=== PATIENT | male | born 1955 | race Two or more races ===

== ENCOUNTER 2024-10-13 12:47 | Emergency (ER) | payer OTHER ==
[~2024-10-13] VITALS: Ht 175.3 cm; Wt 88.7 kg
[2024-10-13 13:42] VITALS: BP 120/75; PULSE 86; RESP 16; TEMP 98.1; O2SAT 94
--- NOTE | 2024-10-13 16:06 | DVH ---
CLINICAL INFORMATION: 69 years old, Male; pneumonia. TECHNIQUE: Frontal and lateral chest radiographs were obtained. COMPARISON: None FINDINGS: Lungs: Moderate elevation of the right hemidiaphragm. Mild atelectasis in the lung bases. No focal co nsolidation. Cardiac: Heart size is within normal limits. Pulmonary vasculature: Unremarkable Mediastinum/kvng: Moderate atherosclerotic calcification of the aortic arch. Bones: No evidence of acute osseous abnormality. Other: No other significant finding. IMPRESSION: 1. No evidence of acute disease in the chest. 2. Nonacute findings as described above.
[2024-10-13] MEDS ORDERED: BENZ100C97 PO (16:28)
--- NOTE | 2024-10-13 16:28 | ED.PDOC ---
History of Present Illness HPI Comments 69-year-old male with past medical history pertinent for HTN, presents to ED for flu-like symptoms x2 days, associated with cough, congestion, body aches, fatigue, intermittent fevers. Patient denies any nausea, vomiting, abdominal pain, shortness of breath, chest pain. He reports that his has similar s ymptoms at home. He reports taking DayQuil and NyQuil with some relief of symptoms. Chief Complaint: Flu like Time Seen by MD: 15:09 Primary Care Provider: MADELEINE Reviewed Notes: Nurses Notes, Medications, Allergies Allergies: Coded Allergies: NO KNOWN ALLERGIES (Unverified , 10/13/24) Home Meds Active Scripts Benzonatate (Benzonatate) 100 Mg Cap, 1 CAP PO TID, #30 CAP Prov:DEANGELOCLEO CONNOLLY PAC 10/13/24 Mode of Arrival: Ambulatory Past Medical History PAST MEDICAL HISTORY: HTN Family History Family History: Reviewed,noncontributory to illness, No family hx of Cancer, No family hx of DM, No family hx of Heart caity, No family hx of HTN, No family hx ofKidney caity, No family hx of Liver caity, No family hx of Lung caity, No family hx of Stroke Social History Smoker: Non-Smoker Alcohol: Denies ETOH Use Drugs: Denies Drug Use Constitutional: reports: fatigue, fever; denies: chills, diaphoresis, malaise, sweats, weakness, others EENTM: reports: nose congestion; denies: blurred vision, double vision, ear bleeding, ear discharge, ear drainage, ear pain, ear ringing, eye pain, eye redness, hearing loss, mouth pain, mouth swelling, nasal discharge, nose bleeding, nose pain, photophobia, tearing, throat pain, throat swelling, voice changes, others Respiratory: reports: cough; denies: hemoptysis, orthopnea, SOB at rest, shortness of breath, SOB with excertion, stridor, wheezing, others Cardiovascular: denies: chest pain, dizzy spells, diaphoresis, Dyspnea on exertion, edema, irregular heart beat, left arm pain, lightheadedness, palpitations, PND, syncope, others Gastrointestinal: denies: abdomen distended, abdominal pain, blood streaked bowels, constipated, diarrhea, dysphagia, difficulty swallowing, hematemesis, melena, nausea, poor appetite, poor fluid intake, rectal bleeding, rectal pain, vomiting, others Genitourinary: denies: burning, dysuria, flank pain, frequency, hematuria, incontinence, penile discharge, penile sore, pain, testicle pain, testicle swelling, urgency, others Neurological: denies: dizziness, fainting, headache, left sided numbness, left sided weakness, numbness, paresthesia, pre-existing deficit, right sided numbness, right sided weakness, seizure, speech problems, tingling, tremors, weakness, others Musculoskeletal: reports: muscle pain; denies: back pain, gout, joint pain, joint swelling, muscle stiffness, neck pain, others Integumetry: denies: bruises, change in color, change in hair/nails, dryness, laceration, lesions, lumps, rash, wounds, others Allergic/Immunocompromised: denies: Difficulty Healing, Frequent Infections, Hives, Itching, others Hematologic/Lymphatic: denies: anemia, blood clots, easy bleeding, easy bruising, swollen glands, others Endocrine: denies: excessive hunger, excessive sweating, excessive thirst, excessive urination, flushing, intolerance to cold, intolerance to heat, unexplained weight gain, unexplained weight loss, others Psychiatric: denies: anxiety, bipolar disorder, depression, hopeless, panic disorder, schizophrenia, sleepless, suicidal, others All Other Systems: Reviewed and Negative Physical Exam General Appearance: No Apparent Distress, Normal HEENT: Normal ENT Inspection, Pharynx Normal, TMs Normal Neck: Full Range of Motion, Non-Tender, Normal, Normal Inspection Respiratory: Chest Non-Tender, No Accessory Muscle Use, No Respiratory Distress, Wheezing (Mild expiratory wheezing heard in all lung valerio.) Cardiovascular: No Edema, No JVD, No Murmur, No Gallop, Normal Peripheral Pulses, Regular Rate/Rhythm Breast Exam: Deferred Gastrointestinal: No Organomegaly, Non Tender, No Pulsatile Mass, Normal Bowel Sounds, Soft Genitalia: Deferred Pelvic: Deferred Rectal: Deferred Extremities: No calf tenderness, Normal capillary refill, Normal inspection, Normal range of motion, Non-tender, No pedal edema Musculoskeletal : Apperance: Normal Neurologic: Alert, diving supervisor II-XII nml as Tested, No Motor Deficits, Normal Affect, Normal Mood, No Sensory Deficits Cerebellar Function: Normal Reflexes: Normal Skin: Dry, Normal Color, Warm Lymphatic: No Adenopathy Was a procedure done? Was a procedure done?: No Differential Dx Considerations may include: URI, pneumonia, sinusitis X-Ray, Labs, Meds, VS Vital Signs Date Time Temp Pulse Resp B/P (MAP) Pulse Ox O2 Delivery O2 Flow Rate FiO2 10/13/24 13:42 98.1 86 16 120/75 (90) 94 98.1 10/13/24 13:42 86 16 94 Room Air 10/13/24 12:51 98.1 86 16 120/75 (90) 94 Lab Test 10/13/24 15:17 Range/Units Influenza Type A Antigen Pending Influenza Type B Antigen Pending SARS-CoV-2 Antigen (Rapid) Pending X-Ray, Labs, Meds, VS Comment CXR: FINDINGS: Lungs: Moderate elevation of the right hemidiaphragm. Mild atelectasis in the lung bases. No focal consolidation. Cardiac: Heart size is within normal limits. Pulmonary vasculature: Unremarkable Mediastinum/kvng: Moderate atherosclerotic calcification of the aortic arch. Bones: No evidence of acute osseous abnormality. Other: No other significant finding. IMPRESSION: 1. No evidence of acute disease in the chest. 2. Nonacute findings as described above. MDM: Patient with history as above presented with flu like symptoms. History obtained from patient. Patient was nontoxic, stable, afebrile, ambulatory, no acute distress. Exam as above. Exam reassuring against focal bacterial infection or surgical pathology. Labs reviewed. Patient was positive for influenza A. Independently reviewed imaging. Chest x-ray did not show acute cardiopulmonary disease. Reviewed external records. All findings were discussed with the patient. Differential diagnosis considered. Overall presentation is consistent with viral infection. Low suspicion for bacterial sinusitis, pneumonia, meningitis, endoca rditis, or other serious infection. Patient was reevaluated and vital signs were reviewed. Consideration was given for admission, but the patient was stable for outpatient management. Advised patient to stay adequately hydrated and treat symptoms at home as needed with Tylenol or Motrin. Disposition: Discussed the need to follow up diagnostics, including incidental findings. Discharged the patient with instructions to obtain outpatient follow up in 1-2 days of today's symptoms and findings, with strict return precautions if patient develops new or worsening symptoms. This medical document was created using the [employer] dictation system. Although this document has been carefully reviewed, there may still be some phonetic and typographical errors, which are due to imperfections of the software program, and do not reflect any compromise in the patient's medical care. Time of 1ST Reevaluation: 16:27 Reevaluation 1ST: Unchanged Patient Education/Counseling: Diagnosis, Treatment, Prognosis, Need For Follow Up Family Education/Counseling: Diagnosis, Treatment, Prognosis, Need For Follow Up Departure 1 Departure Time of Disposition: 16:49 Impression: Primary Impression: Influenza Disposition: 01 HOME / SELF CARE / HOMELESS Condition: Fair e-Prescriptions Benzonatate (Benzonatate) 100 Mg Cap 1 CAP PO TID, #30 CAP Prov: CLEO BRIGHT 10/13/24 Critical Care Note Critical Care Time?: No Stability Stability form required: No Heart Score Heart Score: Heart Score Response (Comments) Value History N/A 0 EKG N/A 0 Age N/A 0 Risk Factors N/A 0 Troponin N/A 0 Total 0 CLEO BRIGHT Oct 13, 2024 16:28
[2024-10-13 16:50] LABS: Rapid Influenza B Negative (Negative)
[2024-10-13 16:52] LABS: Rapid Influenza A Positive (Negative)
[2024-10-13 16:53] LABS: COVID19 ANTIGEN SOFIA FIA NEGATIVE (NEGATIVE)
== END 2024-10-13 16:49 | disposition home or self-care (01) ==
LOC: ER 12:47
DX: J11.1 Influenza due to unidentified influenza virus with other respiratory manifestations (principal); I10 Essential (primary) hypertension; Z20.822 Contact with and (suspected) exposure to COVID-19
CPT/HCPCS: 36415; 71046; 87426; 87804